=== PATIENT | male | born 1955 | race Caucasian/White ===

== ENCOUNTER → 2019-08-24 12:51 | Outpatient (BNVA) | payer MEDICARE, BC, SELFPAY | PROVIDERS: Family Provider Nurse Practitioner Family; PCP Nurse Practitioner Family; Visit Provider Nurse Practitioner Family | DX: M25.561 Pain in right knee (principal) | CPT/HCPCS: 73562 ==

== ENCOUNTER → 2020-01-24 10:51 | Outpatient (BNVA) | payer MEDICARE, BC, SELFPAY | PROVIDERS: Family Provider Nurse Practitioner Family; PCP Nurse Practitioner Family; Visit Provider Urology | DX: C61 Malignant neoplasm of prostate (principal); N39.3 Stress incontinence (female) (male) | CPT/HCPCS: 81001; 84153 ==

== ENCOUNTER → 2020-07-25 08:27 | Outpatient (BNVA) | payer MEDICARE, BC, SELFPAY | PROVIDERS: Family Provider Nurse Practitioner Family; PCP Nurse Practitioner Family; Visit Provider Urology | DX: C61 Malignant neoplasm of prostate (principal); N39.3 Stress incontinence (female) (male); N52.32 Erectile dysfunction following radical cystectomy | CPT/HCPCS: 81003; 84153 ==

== ENCOUNTER → 2021-04-25 10:49 | Outpatient (BNVA) | payer MEDICARE, BC, SELFPAY | PROVIDERS: Family Provider Nurse Practitioner Family; PCP Nurse Practitioner Family; Visit Provider Nurse Practitioner Family | DX: N52.32 Erectile dysfunction following radical cystectomy (principal); C61 Malignant neoplasm of prostate | CPT/HCPCS: 81003; 84153 ==

== ENCOUNTER 2021-11-08 09:54 | Outpatient (CLI) | payer MEDICARE, BC, SELFPAY ==
[2021-11-08 10:39] LABS: Prostate Specific Antigen 0.085 ng/mL (0-4)
== END 2021-11-08 09:55 | disposition home or self-care (01) ==
LOC: LAB 09:57
PROVIDERS: PCP Nurse Practitioner Family; Visit Provider Urology
DX: C61 Malignant neoplasm of prostate (principal)
CPT/HCPCS: 81003; 84153

== ENCOUNTER → 2022-10-30 14:36 | Outpatient (BNVA) | payer MEDICARE, BC, SELFPAY | PROVIDERS: PCP Nurse Practitioner Family; Visit Provider Urology | DX: R97.21 Rising PSA following treatment for malignant neoplasm of prostate (principal); N39.9 Disorder of urinary system, unspecified | CPT/HCPCS: 81003; 99213 ==

== ENCOUNTER 2022-12-04 08:41 | Oncology outpatient (recurring) (ONCR) | payer MEDICARE, BC, SELFPAY ==
--- NOTE | 2022-11-12 12:58 | N.ONRAD NP_ITS ---
Radiation Oncology Consultation Patient Name: Cesar Wilkinson Date of : 1955 Date of Service: 11/12/2022 Attending Physician: Cesar Crawford M.D. Cesar Wilkinson was seen in consultation this morning at the request of Hubert To M.D. for consideration of salvage radiotherapy in the management of a previously diagnosed prostate cancer with a biochemical failure. He initially was diagnosed in November of 2017 with prostate cancer. The initial PSA was 6 ng/mL. A laparoscopic robot-assisted prostatectomy with bilateral pelvic lymphadenectomy was performed by Cesar Gallo M.D on November 10, 2017. The pathology report (requested from [facility] in [place], [place] and reviewed in [facility]) confirmed an adenocarcinoma the prostate (15 % involvement) with a [place] score of 3+4 with seminal vesicle invasion (pT3b). A total of 1 pelvic lymph node was harvested that did not harbor malignancy. The initial postoperative PSA was undetectable. The patient's PSA level incipiently has risen to 0.11 ng/mL in October of 2022. He was referred for salvage radiotherapy. I reviewed the recommendations The National Comprehensive Cancer Network Guidelines with consideration of androgen deprivation therapy for salvage radiotherapy. I also discussed the RTOG 9601 trial that determined 24 months of antiandrogen therapy with salvage radiotherapy resulted in an improvement in overall survival and the GETUG-AFU 16 study attested improvement in progression-free survival to the patients that were randomized to radiotherapy in conjunction with short-term hormonal suppression, as well as, the RADICALS studies that demonstrated non-inferiority in progression-free survival for salvage radiotherapy compared to adjuvant treatment. I will order a PSMA scan in accordance with NCCN recommendations. If there is no evidence of metastatic disease, I would endorse a 6 1/2 week course of radiotherapy with consideration for concurrent gonadotropin releasing hormone agonist pharmacotherapy. Prior to beginning treatment, a CT scan will be acquired in the treatment position to delineate the clinical target volume. Toxicities of pelvic radiotherapy were also canvassed. The patient has verbalized understanding would like proceed as recommended. The patient's medical treatment plan was discussed with Cesar Gallo M.D. Signed by: Cesar Crawford 11/12/2022 1:12:52 PM
--- NOTE | 2022-12-04 09:53 | ONCRAD EPV_ITS ---
Radiation Oncology Follow-Up Note Patient Name: Cesar Wilkinson Date of : 1955 Date of Service: 12/04/2022 Attending Physician: Cesar Crawford M.D. Cesar Wilkinson returned this morning to discuss the results of a PET Pylarify scan. He initially was diagnosed in November of 2017 with prostate cancer. The initial PSA was 6 ng/mL. A laparoscopic robot-assisted prostatectomy with bilateral pelvic lymphadenectomy was performed by Cesar Gallo M.D on November 10, 2017. The pathology report confirmed an adenocarcinoma the prostate (15 % involvement) with a [place] score of 3+4 with seminal vesicle invasion (pT3b). A total of 1 pelvic lymph node was harvested that did not harbor malignancy. The initial postoperative PSA was undetectable. The patient's PSA level incipiently has risen to 0.11 ng/mL in October of 2022. An F-18 PSMA PET scan ordered on December 01, 2022 did not identify evidence of PSMA-avid receptor tumor activity. I reviewed the recommendations The National Comprehensive Cancer Network Guidelines with consideration of androgen deprivation therapy for salvage radiotherapy. I also discussed the RTOG 9601 trial that determined 24 months of antiandrogen therapy with salvage radiotherapy resulted in an improvement in overall survival and the GETUG-AFU 16 study attested improvement in progression-free survival to the patients that were randomized to radiotherapy in conjunction with short-term hormonal suppression, as well as, the RADICALS studies that demonstrated non-inferiority in progression-free survival for salvage radiotherapy compared to adjuvant treatment. We also discussed the Pylarify results. If he elects treatment, I would endorse a 6 1/2 week course of radiotherapy with consideration for concurrent gonadotropin- releasing hormone agonist pharmacotherapy. Prior to beginning treatment, a CT scan will be acquired in the treatment position to delineate the clinical target volume. Toxicities of pelvic radiotherapy were also canvassed. The patient has verbalized understanding would like proceed as recommended. The patient's medical treatment plan was discussed with Hubert To M.D. Signed by: Cesar Crawford 12/04/2022 9:52:02 AM
== END 2022-12-07 23:59 | disposition home or self-care (01) ==
PROVIDERS: PCP Nurse Practitioner Family; Visit Provider Radiology Radiation Oncology
DX: C61 Malignant neoplasm of prostate (principal); Z90.89 Acquired absence of other organs; R97.21 Rising PSA following treatment for malignant neoplasm of prostate
CPT/HCPCS: 99205; 99215

== ENCOUNTER 2023-07-15 09:53 | Oncology outpatient (recurring) (ONCR) | payer MEDICARE, BC, SELFPAY ==
[2023-07-15 10:35] LABS: Prostate Specific Antigen 0.185 ng/mL (0-4)
--- NOTE | 2023-07-15 10:53 | ONCRAD EPV_ITS ---
Radiation Oncology Established Patient Visit Patient: Minh Guerrero [id number] : 1955> Age: 68> Sex: Male> Dictated by: Dr. Bee Holley Date of Service: 07/15/2023 Referring Physician(s) : Dr. Hubert To Diagnosis: C61 - Malignant neoplasm of prostate, Diagnosed 07/20/2017 (Active) Stage, T1c, N0, M0 Radiotherapy to Date: none Current History: Patient returns today to review the results of his PSMA PET scan. The PET had mild uptake in a nodule in the left seminal vesicle area which had changed in size from 0.9 x 1.0 to 1.0 x 1.2. The SUV did not reach significance. His PSA today was 0.18. The last PSA prior was in October and was 0.11. Clinically he is doing well. His eye PSS score is 7. Current Medications: Aspirin EC, folic Acid, hydroCHLOROthiazide, lisinopril, metoprolol Succinate ER, omeprazole, pARoxetine HCl. Allergies: Penicillins. Current Complaints / Review of Systems: . Vital Signs: Performed on 07/15/2023 10:24 AM BMI - 35.767 kg/m2 (high), Height - 69 in, Weight - 242.2 lbs, Temperature - 97.5 f, Pulse - 68 /min, Respiration - 18 /min, O2 Sat - 97 %, Pain - 0, Fatigue - 0 and BP - 134/ 81 mm(hg). Physical Exam: General: Alert and oriented x 3. No acute distress. HEENT: Normocephalic, atraumatic. Extraocular Movements Intact: Pupils Equal, Round, Sclerae anicteric. . LUNGS: Respiratory to regular nonlabored HEART: Regular rate and rhythm,. MUSCULOSKELETAL: No gross abnormalities noted. ABDOMEN: Moderately protuberant EXTREMITIES: Without clubbing cyanosis or edema NEUROLOGIC: Alert and oriented x3. Gait speech within normal limits Skin: No erythema or lesions noted Performance Status: [id number] Lab: None pending. psa 0.18 Pathology: Primary, c61 - malignant neoplasm of prostate, Diagnosed 07/20/2017 (active) stage x, t1c, n0, m0. Imaging: See HPI Impression: Adenocarcinoma the prostate [place] score 7 stage T3b with rising PSA Plan: I reviewed with him the results of his scan. We talked about how the level of PSA will give us a detection rate of less than 1 out of 3. I recommended to him in the future that we only obtain the scan when his PSA is reached levels greater than 1. I reviewed with him the fact that his PSA has risen from 0.11-0.18. We talked about the role of radiation in patients with rising PSAs. I reviewed with him the risks and side effects of the radiation both acute and long-term. We talked about some different options in terms of closer follow-up to monitor the rate of change of his PSA. I have recommended that if he should choose to not proceed with any treatment he would need to get it checked more frequently. After some discussion and additional questions were answered he has elected at this point to proceed with checking his PSA every 3 months. At some point if his PSA should reach a level that signifies the activity of the disease has changed he will proceed with treatment. I reminded him that his initial cancer took 5 years to get to this point but if his rate of change should accelerate then the disease itself will of changed and we will need to proceed with intervention. He verbalized understanding of this and he will return in 3 months with a PSA Signed by: 07/15/2023 10:52:07 AM <<Signature on File>> Time spent with patient: 30 CPT Code: CPT Code:
== END 2023-08-09 23:59 | disposition home or self-care (01) ==
PROVIDERS: Radiology Radiation Oncology; PCP Nurse Practitioner Family; Visit Provider Nurse Practitioner Family
DX: C61 Malignant neoplasm of prostate (principal); Z53.9 Procedure and treatment not carried out, unspecified reason
CPT/HCPCS: 36415; 84153

== ENCOUNTER 2023-10-23 09:21 | Oncology outpatient (recurring) (ONCR) | payer MEDICARE, BC, SELFPAY ==
[2023-10-12 10:14] LABS: Prostate Specific Antigen 0.258 ng/mL (0-4)
--- NOTE | 2023-10-12 10:51 | ONCRAD EPV_ITS ---
Radiation Oncology Established Patient Visit Patient: Minh Guerrero [id number] : 1955> Age: 68> Sex: Male> Dictated by: Dr. Bee Holley Date of Service: 10/12/2023 Referring Physician(s) : Dr. Hubert To Diagnosis: C61 - Malignant neoplasm of prostate, Diagnosed 07/20/2017 (Active) Stage X, T1c, N0, M0 Radiotherapy to Date: None Current History: Patient returns today for an additional PSA. His PSA last October was 0.11. The PSA in July 2023 was 0.185. His PSA from today was 0.258. I reviewed these results with him. He had already made up his mind that if it should be above 0.2 he would proceed with postop treatment. I reviewed with him the simulation process. We discussed the daily treatment regiment. We reviewed the risks and side effects both acute and long-term. At this point he is agreed to proceed. Will have him undergo simulation and begin his treatment shortly thereafter. Current Medications: Aspirin EC, folic Acid, hydroCHLOROthiazide, lisinopril, metoprolol Succinate ER, omeprazole, pARoxetine HCl. Allergies: Penicillins. Current Complaints / Review of Systems: . Vital Signs: Performed on 10/12/2023 9:48 AM BMI - 36.121 kg/m2 (high), Height - 69 in, Weight - 244.6 lbs, Temperature - 98.2 f, Pulse - 75 /min, Respiration - 18 /min, O2 Sat - 96 %, Pain - 0, Fatigue - 0 and BP - 130/ 78 mm(hg). Physical Exam: General: Alert and oriented x 3. No acute distress. HEENT: Normocephalic, atraumatic. Extraocular Movements Intact: Pupils Equal, Round, Reactive to light. LUNGS: Respiratory rate is regular nonlabored HEART: Regular rate and rhythm,. MUSCULOSKELETAL: No gross musculoskeletal abnormalities noted. ABDOMEN: Soft, nontender, nondistended EXTREMITIES: No peripheral edema is identified. NEUROLOGIC: Alert and orient x 3. Gait and speech within normal limits Performance Status: kPS 100 Lab: None pending. Pathology: Primary, c61 - malignant neoplasm of prostate, Diagnosed 07/20/2017 (active) stage x, t1c, n0, m0. Imaging: See HPI Impression: Adenocarcinoma the prostate status post radical prostatectomy in 2018 now with rising PSA Plan: I reviewed with Mr. Wilkinson and his the pattern of his PSA and the recent elevation. He had already decided that he wanted to proceed with treatment if it was above 0.2. I reviewed with him the simulation process. We talked about the daily treatment regiment. We discussed the risks and side effects both acute and long-term. At this point he verbalized understanding of all the above and he wishes to proceed with treatment. He will undergo simulation and begin his treatment shortly thereafter. Signed by: 10/12/2023 10:50:29 AM <<Signature on File>> Time spent with patient:45 CPT Code: CPT Code:
--- NOTE | 2023-10-20 10:27 | ONCRAD TMN_ITS ---
Radiation Oncology Weekly Treatment Management Patient: Cesar Wilkinson MR#: [id number] : 1955 Attending Physician: Chinmay Castillo Date of Service: 10/20/2023 Referring Physician(s) : Dr. Hubert To Diagnosis: C61 - Malignant neoplasm of prostate, Diagnosed 07/20/2017 (Active) Stage X, T1c, N0, M0 Radiotherapy to date: Course: prostate post op, Treatment Site: Prostate 70Gy, Ref. ID: [id number], Energy: 15X, Dose/Fx (cGy): 250, #Fx: , Dose Correction (cGy): 0, Total Dose Delivered (cGy): 1,000, Start Date: 10/15/2023, Elapsed Days: 5 Reason for visit: The patient is being seen today as part of their regularly scheduled weekly on treatment visits to assess for acute toxicities from radiotherapy. Review of Systems: Patient denies difficulty with urinary frequency, urgency, or dysuria. He has no complaints of difficulty sleeping. Patient indicates that he has chewed tobacco for years and continues to chew tobacco. He enjoys camping with his and grandsons. Vital Signs: Performed on 10/20/2023 9:24 AM BMI - 35.915 kg/m2 (high), Height - 69 in, Weight - 243.2 lbs, Temperature - 96.9 f, Pulse - 67 /min, Respiration - 16 /min, O2 Sat - 98 %, Pain - 0, Fatigue - 0 and BP - 137/ 86 mm(hg). Physical Exam: Alert and oriented male appearing his stated age. Patient amatory without assistance. Imaging: Radiation therapy imaging related to accurate target localization (i.e. KV, MV and CBCT) was reviewed. Appropriate changes, if any, were made to ensure treatment accuracy. Plan: Patient is tolerating his radiation therapy well. Plan to continue prescribed treatment. We discussed the potential for head and neck cancers secondary to chewing tobacco and I have encouraged the patient to discontinue chewing tobacco. Signed by: Chinmay Castillo 10/20/2023 10:26:06 AM
== END 2023-10-23 23:59 | disposition home or self-care (01) ==
PROVIDERS: Radiology Radiation Oncology; PCP Nurse Practitioner Family; Visit Provider Radiology Radiation Oncology
DX: Z51.0 Encounter for antineoplastic radiation therapy (principal); C61 Malignant neoplasm of prostate
CPT/HCPCS: 36415; 77300; 77301; 77334; 77336; 77338; 77385; 84153; 99024; 99215

== ENCOUNTER 2023-11-06 09:01 | Oncology outpatient (recurring) (ONCR) | payer MEDICARE, BC, SELFPAY ==
--- NOTE | 2023-10-27 11:47 | ONCRAD TMN_ITS ---
Radiation Oncology Weekly Treatment Management Patient: Cesar Wilkinson MR#: [id number] : 1955 Attending Physician: Lb Barrios Date of Service: 10/27/2023 Referring Physician(s) : Dr. Hubert To Diagnosis: C61 - Malignant neoplasm of prostate, Diagnosed 07/20/2017 (Active) Stage X, T1c, N0, M0 Radiotherapy to date: Course: prostate post op, Treatment Site: Prostate 70Gy, Ref. ID: [id number], Energy: 15X, Dose/Fx (cGy): 250, #Fx: , Dose Correction (cGy): 0, Total Dose Delivered (cGy): 2,250, Start Date: 10/15/2023, Elapsed Days: 12 Reason for visit: The patient is being seen today as part of their regularly scheduled weekly on treatment visits to assess for acute toxicities from radiotherapy. Review of Systems: No change in urination. 1 x nocturia. Good flow. No pain. Bowels ok. Vital Signs: Performed on 10/27/2023 9:54 AM BMI - 35.974 kg/m2 (high), Height - 69 in, Weight - 243.6 lbs, Temperature - 97.8 f, Pulse - 71 /min, Respiration - 16 /min, O2 Sat - 94 % (low), Pain - 0, Fatigue - 4 and BP - 125/ 84 mm(hg). Physical Exam: omitted Imaging: Radiation therapy imaging related to accurate target localization (i.e. KV, MV and CBCT) was reviewed. Appropriate changes, if any, were made to ensure treatment accuracy. Plan: Good tolerance of treatment. Continue as planned. Signed by: Lb Barrios 10/27/2023 11:46:53 AM
--- NOTE | 2023-11-03 09:59 | ONCRAD TMN_ITS ---
Radiation Oncology Weekly Treatment Management Patient: Minh Guerrero> MR#: [id number] : 1955> Attending Physician: Dr. Bee Holley Date of Service: 11/03/2023 Fractions: 14 out of 28 Referring Physician(s) : Dr. Hubert To Diagnosis: C61 - Malignant neoplasm of prostate, Diagnosed 07/20/2017 (Active) Stage X, T1c, N0, M0 Radiotherapy to date: Course: prostate post op, Treatment Site: Prostate 70Gy, Ref. ID: [id number], Energy: 15X, Dose/Fx (cGy): 250, #Fx: , Dose Correction (cGy): 0, Total Dose Delivered (cGy): 3,500, Start Date: 10/15/2023, Elapsed Days: 19 Reason for visit: The patient is being seen today as part of their regularly scheduled weekly on treatment visits to assess for acute toxicities from radiotherapy. Review of Systems: Patient has had fatigue for the last week or so. He actually took a 2-hour nap yesterday. He says as long as he stays busy in the morning he can usually last till 2 at which time he eats lunch and then he takes a nap. He had some increased frequency of urination during the day. He gets up 1-2 times at night to pee. He said no changes in bowel movements. Vital Signs: Performed on 11/03/2023 9:28 AM BMI - 36.417 kg/m2 (high), Height - 69 in, Weight - 246.6 lbs, Temperature - 97.8 f, Respiration - 64 /min (high), O2 Sat - 96 %, Pain - 0, Fatigue - 5 and BP - 142/ 87 mm(hg)(high/). Physical Exam: Patient is no apparent distress Imaging: Radiation therapy imaging related to accurate target localization (i.e. KV, MV and CBCT) was reviewed. Appropriate changes, if any, were made to ensure treatment accuracy. Plan: Continue treatments as planned. I encouraged him to rest if needed. Otherwise to remain active and to continue his normal daily activities. Signed by: Dr. Bee Holley 11/03/2023 9:58:30 AM
== END 2023-11-08 23:59 | disposition home or self-care (01) ==
PROVIDERS: PCP Nurse Practitioner Family; Visit Provider Radiology Radiation Oncology
DX: Z51.0 Encounter for antineoplastic radiation therapy (principal); C61 Malignant neoplasm of prostate
CPT/HCPCS: 77336; 77385; 99024

== ENCOUNTER 2023-11-23 08:59 | Oncology outpatient (recurring) (ONCR) | payer MEDICARE, BC, SELFPAY ==
--- NOTE | 2023-11-10 10:04 | ONCRAD TMN_ITS ---
Radiation Oncology Weekly Treatment Management Patient: Cesar Wilkinson MR#: [id number] : 1955 Attending Physician: Dr. Bee Holley Date of Service: 11/10/2023 Fractions: 19 out of 28 Referring Physician(s) : Dr. Hubert To Diagnosis: C61 - Malignant neoplasm of prostate, Diagnosed 07/20/2017 (Active) Stage X, T1c, N0, M0 Radiotherapy to date: Course: prostate post op, Treatment Site: Prostate 70Gy, Ref. ID: [id number], Energy: 15X, Dose/Fx (cGy): 250, #Fx: , Dose Correction (cGy): 0, Total Dose Delivered (cGy): 4,750, Start Date: 10/15/2023, Elapsed Days: Reason for visit: The patient is being seen today as part of their regularly scheduled weekly on treatment visits to assess for acute toxicities from radiotherapy. Review of Systems: Patient has just some mild increased frequency. He has noticed no new changes. He did have questions about his finger. Apparently about a year ago he got a piece of metal stuck under the nail. Since that time the fingernail has not grown normally. Vital Signs: Performed on 11/10/2023 9:20 AM BMI - 36.21 kg/m2 (high), Height - 69 in, Weight - 245.2 lbs, Temperature - 97.8 f, Pulse - 59 /min (low), Respiration - 16 /min, O2 Sat - 98 %, Pain - 0, Fatigue - 4 and BP - 150/ 72 mm(hg)(high/). Physical Exam: On examination he has no physical changes from the treatment. He does have some abnormality in the middle finger with the nail not growing properly on the outer edge. Imaging: Radiation therapy imaging related to accurate target localization (i.e. KV, MV and CBCT) was reviewed. Appropriate changes, if any, were made to ensure treatment accuracy. Plan: Will continue with his treatments as planned. He has 9 treatments left. I did recommend that he have his primary care physician take a plain x-ray of his finger to see if there is any metal left in the nailbed. Signed by: Dr. Bee Holley 11/10/2023 10:03:37 AM
--- NOTE | 2023-11-17 09:45 | ONCRAD TMN_ITS ---
Radiation Oncology Weekly Treatment Management Patient: Cesar Wilkinson MR#: [id number] : 1955 Attending Physician: Dr. Bee Holley Date of Service: 11/17/2023 Fractions: 24 out of 28 Referring Physician(s) : Dr. Hubert To Diagnosis: C61 - Malignant neoplasm of prostate, Diagnosed 07/20/2017 (Active) Stage X, T1c, N0, M0 Radiotherapy to date: Course: prostate post op, Treatment Site: Prostate 70Gy, Ref. ID: [id number], Energy: 15X, Dose/Fx (cGy): 250, #Fx: , Dose Correction (cGy): 0, Total Dose Delivered (cGy): 6,000, Start Date: 10/15/2023, Elapsed Days: 33 Reason for visit: The patient is being seen today as part of their regularly scheduled weekly on treatment visits to assess for acute toxicities from radiotherapy. Review of Systems: Patient is has noticed a little bit of irritation in the inguinal folds. He says is usually gets this way in the summer and it becomes a little more pruritic. Vital Signs: Performed on 11/17/2023 9:09 AM BMI - 35.708 kg/m2 (high), Height - 69 in, Weight - 241.8 lbs, Temperature - 97.5 f, Pulse - 82 /min, Respiration - 18 /min, O2 Sat - 98 %, Pain - 0, Fatigue - 0 and BP - 125/ 70 mm(hg). Physical Exam: No real changes on exam Imaging: Radiation therapy imaging related to accurate target localization (i.e. KV, MV and CBCT) was reviewed. Appropriate changes, if any, were made to ensure treatment accuracy. Plan: Will continue with his treatments as he only has 4 remaining. I did recommend he pickle solution maker cortisone cream for the pruritus and discussed some different ways he can manage the skin over the summer when he usually has issues with irritation. Signed by: Dr. Bee Holley 11/17/2023 9:51:53 AM
--- NOTE | 2023-11-24 08:21 | N.ONRD TS_ITS ---
Radiation Oncology Treatment Summary Patient: Cesar Wilkinson MR#: [id number] : 1955 Age: 68 Sex: Male Dictated by: Dr. Bee Holley Date of Service: 11/23/2023 Referring Physician(s) : Dr. Hubert To Diagnosis: C61 - Malignant neoplasm of prostate, Diagnosed 07/20/2017 (Active) Stage X, T1c, N0, M0 Radiotherapy to Date: Course: prostate post op, Treatment Site: Prostate 70Gy, Ref. ID: [id number], Energy: 15X, Dose/Fx (cGy): 250, #Fx: 28 / 28, Dose Correction (cGy): 0, Total Dose Delivered (cGy): 7,000, Start Date: 10/15/2023, End Date: 11/23/2023, Elapsed Days: 39 Clinical Summary: The patient tolerated RT well. He experienced mild urinary symptoms Plan: End of treatment today. Continue on the above medication until the skin reaction resolves. Follow up in one month. PSA day prior. Signed by: Dr. Bee Holley>11/24/2023 8:20:05 AM <<Signature on File>>
== END 2023-12-08 23:59 | disposition home or self-care (01) ==
PROVIDERS: PCP Nurse Practitioner Family; Visit Provider Radiology Radiation Oncology
DX: Z51.0 Encounter for antineoplastic radiation therapy (principal); C61 Malignant neoplasm of prostate
CPT/HCPCS: 77336; 77385; 99024

== ENCOUNTER 2023-12-30 08:54 | Oncology outpatient (recurring) (ONCR) | payer MEDICARE, BC, SELFPAY ==
[2023-12-22 10:08] LABS: Prostate Specific Antigen 0.127 ng/mL (0-4)
--- NOTE | 2023-12-30 10:09 | ONCRAD EPV_ITS ---
Radiation Oncology Established Patient Visit Patient: Cesar Wilkinson [id number] : 1955 Age: 68 Sex: Male Dictated by: Dr. Bee Holley Date of Service: 12/30/2023 Referring Physician(s) : Dr. Hubert To Diagnosis: C61 - Malignant neoplasm of prostate, Diagnosed 07/20/2017 (Active) Stage T1c, N0, M0 Radiotherapy to Date: Course: prostate post op, Treatment Site: Prostate 70Gy, Ref. ID: [id number], Energy: 15X, Dose/Fx (cGy): 250, #Fx: , Dose Correction (cGy): 0, Total Dose Delivered (cGy): 7,000, Start Date: 10/15/2023, End Date: 11/23/2023, Elapsed Days: 39 Current History: Current Medications: Aspirin EC, folic Acid, hydroCHLOROthiazide, lisinopril, metoprolol Succinate ER, omeprazole, pARoxetine HCl. Allergies: Penicillins. Current Complaints / Review of Systems: . Patient has had normal bowel bladder habits return. Vital Signs: Performed on 12/30/2023 9:02 AM BMI - 35.737 kg/m2 (high), Height - 69 in, Weight - 242 lbs, Temperature - 97.7 f, Pulse - 74 /min, Respiration - 16 /min, O2 Sat - 96 %, Pain - 0, Fatigue - 7 and BP - 141/ 84 mm(hg)(high/). Physical Exam: General: Alert and oriented x 3. No acute distress. HEENT: Normocephalic, atraumatic. Extraocular Movements Intact: Pupils Equal, Round, Reactive to Light: Sclerae anicteric LUNGS: Respiratory rate is regular nonlabored HEART: Regular rate and rhythm,. ABDOMEN: Soft, nontender, nondistended EXTREMITIES: No peripheral edema is identified NEUROLOGIC alert and orientedt x 3. Gait and speech within normal limits. Performance Status: 100 Lab: None pending. Pathology: Primary, c61 - malignant neoplasm of prostate, Diagnosed 07/20/2017 (active) stage x, t1c, n0, m0. Imaging: See HPI Impression: Adenocarcinoma the prostate status post surgery 6 years ago followed by postop radiation after an elevated PSA Plan: His PSA has declined nicely down from 0.258 to 0.12. He is recovering nicely from the treatments. At this point I have asked him to get his PSA drawn every 3 months and we will see him back in a year or call if any problems arise in the interim. He will use the patient portal to check his PSA every 3 months. Signed by: 12/30/2023 10:07:13 AM <<Signature on File>> Time spent with patient:30 CPT Code: CPT Code:
== END 2024-01-08 23:59 | disposition home or self-care (01) ==
PROVIDERS: PCP Nurse Practitioner Family; Visit Provider Radiology Radiation Oncology
DX: C61 Malignant neoplasm of prostate (principal)
CPT/HCPCS: 36415; 84153; 99024

== ENCOUNTER 2024-03-25 09:41 | Oncology outpatient (recurring) (ONCR) | payer MEDICARE, BC, SELFPAY ==
[2024-03-25 10:38] LABS: Prostate Specific Antigen 0.082 ng/mL (0-4)
== END 2024-04-09 23:59 | disposition home or self-care (01) ==
LOC: ONCMED 09:43
PROVIDERS: PCP Nurse Practitioner Family; Visit Provider Radiology Radiation Oncology
DX: C61 Malignant neoplasm of prostate (principal)
CPT/HCPCS: 36415; 84153

== ENCOUNTER 2024-07-14 13:08 | Oncology outpatient (recurring) (ONCR) | payer MEDICARE, BC, SELFPAY ==
[2024-07-14 14:28] LABS: Prostate Specific Antigen 0.081 ng/mL (0-4)
== END 2024-08-09 23:59 | disposition home or self-care (01) ==
PROVIDERS: PCP Nurse Practitioner Family; Visit Provider Radiology Radiation Oncology
DX: C61 Malignant neoplasm of prostate (principal)
CPT/HCPCS: 36415; 84153

== ENCOUNTER 2024-10-12 09:56 | Oncology outpatient (recurring) (ONCR) | payer MEDICARE, BC, SELFPAY ==
[2024-10-12 10:37] LABS: Prostate Specific Antigen 0.071 ng/mL (0-4)
== END 2024-11-07 23:59 | disposition home or self-care (01) ==
LOC: ONCMED 09:59
PROVIDERS: Radiology Radiation Oncology; PCP Nurse Practitioner Family; Visit Provider Internal Medicine
DX: C61 Malignant neoplasm of prostate (principal)
CPT/HCPCS: 36415; 84153